=== PATIENT | female | born 1970 | race Caucasian/White ===

== ENCOUNTER 2016-11-15 13:59 | Emergency (ER) | payer MEDICARE ==
--- NOTE | 2016-11-15 14:38 | ER Document Report ---
ED Medical Screen (RME) - General Stated Complaint: NECK PAIN Notes: Patient has chronic neck, head and jaw pain. Has an appointment coming up with [facility] on November 21. Will be running out of her [place], and was told to come here for refill. I have greeted and performed a rapid initial assessment of this patient. A comprehensive ED assessment and evaluation of the patient, analysis of test results and completion of the medical decision making process will be conducted by additional ED providers. - Related Data Allergies/Adverse Reactions: No Known Allergies Allergy (Verified 11/15/16 14:37) Physical Exam - Vital signs Vitals: Temp Pulse Resp BP Pulse Ox 98.6 F 87 14 114/79 95 11/15/16 14:18 11/15/16 14:18 11/15/16 14:18 11/15/16 14:18 11/15/16 14:18 - General General appearance: Appears well, Alert In distress: None Course - Vital Signs Vital signs: Temp Pulse Resp BP Pulse Ox 98.6 F 87 14 114/79 95 11/15/16 14:18 11/15/16 14:18 11/15/16 14:18 11/15/16 14:18 11/15/16 14:18
--- NOTE | 2016-11-15 16:53 | ER Document Report ---
HPI - HPI Patient complains to provider of: wanting hydrocodone prescription refilled Onset: This morning Pain Level: 4 Context: 46-year-old female with a history of chronic right face pain due to trigeminal neuralgia, and 2 episodes of osteomyelitis post infected tooth last April 2016, was told to come to the emergency room by [facility] for more hydrocodone that [facility] will no [facility] prescribe because she has been referred to them and her first appointment is November 21. They reduced her dosing from 4 10 mg hydrocodone a day to 2 per day. She had a CT of her wounds within the past month which showed no evidence of osteomyelitis. No fever. No swelling. He states she has 4-5 hydrocodone left. Associated Symptoms: None Exacerbated by: Denies Relieved by: Other - Hydrocodone Similar symptoms previously: Yes Recently seen / treated by doctor: Yes - ROS ROS below otherwise negative: Yes Systems Reviewed and Negative: Yes All other systems reviewed and negative - DERM Skin Color: Normal Past Medical History - General Information source: Patient - Social History Smoking Status: Current Every Day Smoker Chew tobacco use (# tins/day): No Frequency of alcohol use: None Drug Abuse: None Occupation: she moved to [place] in July from [place]. Lives with: Family Family History: Reviewed & Not Pertinent Patient has suicidal ideation: No Patient has homicidal ideation: No - Medical History Medical History: Negative Renal/ Medical History: Denies: Hx Peritoneal Dialysis Surgical Hx: Negative - Immunizations Hx Diphtheria, Pertussis, Tetanus Vaccination: Yes Vertical Provider Document - CONSTITUTIONAL Agree With Documented VS: Yes Exam Limitations: No Limitations - INFECTION CONTROL TRAVEL OUTSIDE OF THE [place] IN LAST 30 DAYS: No - HEENT HEENT: Normocephalic. negative: Dental Injury Notes: Gingiva without swelling, no facial swelling, small right anterior cervical lymph node which she states she's had biopsied in the past and was negative. Full range of motion of mandible. - NECK Neck: Supple, Lymphadenopathy-Right. negative: Lymphadenopathy-Left - RESPIRATORY O2 Sat by Pulse Oximetry: 95 - MUSCULOSKELETAL/EXTREMETIES Musculoskeletal/Extremeties: MAEW, FROM - NEURO Level of Consciousness: Awake, Alert Motor/Sensory: No Motor Deficit, No Sensory Deficit - DERM Integumentary: Warm, Dry, No Rash Course - Re-evaluation Re-evalutation: 11/15/16 17:35 Patient was told that we do not refill narcotic prescriptions for chronic pain. She has obtained prescriptions for hydrocodone from a Dr. Valdivia, Dr. Santiago , Amarjit FALCON, Dr. Chang since August as filed in the [place] controlled substance reporting system. Pt states they are all at the [facility]. I explained the ER department policy about opiates and chronic pain. I did encourage the patient to please return to the emergency room if any fever , facial swelling, swelling inside her mouth or any concerns pending her recheck with dr. segovia the oral surgeon who she has seen this month along with a dentist. - Vital Signs Vital signs: Temp Pulse Resp BP Pulse Ox 98.6 F 87 14 114/79 95 11/15/16 14:18 11/15/16 14:18 11/15/16 14:18 11/15/16 14:18 11/15/16 14:18 Discharge - Discharge Clinical Impression: Trigeminal neuralgia Chronic pain Qualifiers: Chronic pain type: other chronic pain Qualified Code(s): G89.29 - Other chronic pain Condition: Good Disposition: HOME, SELF-CARE Instructions: Trigeminal Neuralgia (OM), Ultram (OM) Additional Instructions: see [facility] on November 21 as planned return to the emergency room if any worsening of the symptoms Prescriptions: Tramadol HCl [Ultram 50 mg Tablet] 50 mg PO ASDIR PRN #30 tablet PRN Reason:
[2016-11-15 18:10] VITALS: BP 123/73
== END 2016-11-15 18:10 | disposition home or self-care (01) ==
LOC: ER 13:59
DX: G50.0 Trigeminal neuralgia (principal); G89.29 Other chronic pain; R51 Headache; M86.9 Osteomyelitis, unspecified; Z79.899 Other long term (current) drug therapy; F17.200 Nicotine dependence, unspecified, uncomplicated
CPT/HCPCS: 99282